=== PATIENT | male | born 1970 | race African-American/Black ===

== ENCOUNTER 2016-05-17 19:11 | Emergency (ER) | payer OTHER ==
--- NOTE | 2016-05-17 20:06 | ED NURSING NOTES ---
Clinical Report - Nurses [address] [place] [address] 05/17/2016 19:12 Patient: GABINO BRIDGES TRIAGE Triage time 19:25 May 17 2016. Acuity: LEVEL 4. Chief Complaint: COUGH (cough and burning in chest with cough). SEPSIS SCREEN: Sepsis Screen. Negative (no infection suspected/documented). FRIEDA COMA SCORE: [place] Coma Scale: 15- eyes open spontaneously (4); best verbal response- oriented x 4 (5); best motor response- obeys commands (6). --19:31 Katya Anderson R.N. 19:28 05/17/16. BP: 127/87. HR: 71. RR: 18. O2 saturation: 98%. Temp: 98.5 F. Pain level now: 05/12. --19:31 Katya Anderson R.N. Weight: 70.3 kg stated. Height/Length: 71 inches Per Patient. BMI: 21.6. --19:25 Katya Anderson R.N. Medications Dilantin. --19:29 Katya Anderson R.N. Medication/allergy information source: the patient. --19:31 Katya Anderson R.N. Allergies No Known Drug Allergy. --19:29 Katya Anderson R.N. History Arrived by private vehicle. Historian: patient. Onset. (2 days). He has had a cough. No fever, weakness, difficulty breathing or skin rash. Denies muscle aches. 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 PAST MEDICAL HX: Has not received seasonal influenza immunization. SOCIAL HX: Heavy tobacco smoker (cigarette)- 1 pack per day. Occasional alcohol use; consumes beer occasionally. History of drug use: marijuana. No infectious disease exposure. ABUSE ASSESSMENT: No report of abuse. SELF HARM ASSESSMENT: A self harm assessment was performed. The patient answered "no" to the question "Have you recently felt down, depressed, or hopeless?", "Have you noticed less interest or pleasure in doing things?", "Do you have thoughts of harming or killing yourself?", "Are you here because you tried to hurt yourself?", "Have you ever tried to hurt yourself before today?", "Have you recently had thoughts about harming or killing others?" and "Do you have any dangerous items in your possession?". NUTRITIONAL RISK ASSESSMENT: The nutritional risk assessment revealed no deficiencies. FUNCTIONAL ASSESSMENT: Functional assessment: no impairments noted. LEARNING NEEDS ASSESSMENT: The learning needs assessment revealed no barriers. SKIN INTEGRITY ASSESSMENT: Skin integrity risk assessment completed. No skin integrity risk identified. --19:31 Katya Anderson R.N. PROBLEMS: Arthritis. Sprain. Crush Injury. Exposure To STD. Headache. Substance Abuse. Seizure. Abscess. Knee Injury. --19:29 Katya Anderson R.N. ADDITIONAL SURGERIES: R Wrist Repair. Skin grafting. --19:29 Katya Anderson R.N. Interventions ID band on patient. --19:31 Katya Anderson R.N. NURSING PROGRESS NOTES 19:30 05/17/16. The initial plan of care for this patient includes an assessment with efforts to address impairment of the respiratory system. This plan of care was discussed with the patient. Patient gowned. Patient identifiers checked. Call light placed in reach. Side rails up x 1. Bed placed in lowest position. Brakes of bed on. Patient ready for evaluation. --19:31 Katya Anderson R.N. DISPOSITION / DISCHARGE 20:10 05/17/16. Condition at departure: improved and stable. The goals identified in the patient's plan of care were met. No learning barriers present. Patient verbalized understanding. Written instructions provided in [place] Citizen. The patient was discharged home and accompanied by family. He left the Emergency Department ambulatory and via private vehicle. Patient driving. --20:10 Katya Anderson R.N. 19:28 05/17/16. BP: 127/87. HR: 71. RR: 18. O2 saturation: 98%. Temp: 98.5 F. Pain level now: 2/10. --20:10 Katya Anderson R.N. Departure time: 20:10 May 17 2016. --20:11 Katya Anderson R.N. Locked/Released at 05/17/2016 20:11 by Katya Anderson R.N.
--- NOTE | 2016-05-17 20:06 | ED CLINICAL REPORT ---
Clinical Report - Physicians/Mid Levels [facility] [address] [place] [address] 05/17/2016 19:12 Patient: GABINO BRIDGES Time Seen: 19:27. Arrived- By private vehicle. Historian- patient. CPT: ER phys charges level 3 (#[id number]). 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 The illness is described as moderate. The patient has had a cough. No sputum production, difficulty breathing, chest pain, fever or muscle aches. No chills. He has had chest discomfort (burning). Additional history - No known contact with a sick individual. Similar symptoms previously: None. Recent medical care: Not recently seen/assessed. REVIEW OF SYSTEMS No headache, nausea, vomiting, diarrhea or abdominal pain. No pedal edema, calf pain, difficulty with urination, skin rash or enlarged lymph nodes. No joint pain. All systems otherwise negative, except as recorded above. PAST HISTORY Arthritis. Sprain. Crush Injury. Exposure To STD. Headache. Substance Abuse. Seizure. Abscess. Knee Injury. --19:29 Katya Anderson R.N. ADDITIONAL SURGERIES: R Wrist Repair. Skin grafting. Medications: Dilantin. Allergies: No Known Drug Allergy. SOCIAL HISTORY Heavy tobacco smoker (cigarette)- less than 1 pack per day. Alcohol use. History of occasional drug use: marijuana. ADDITIONAL NOTES The nursing notes have been reviewed. PHYSICAL EXAM Vital Signs: 05/17/2016 19:28 BP: 127/87. HR: 71. RR: 18. O2 saturation: 98%. Temp: 98.5 F. Pain level now: 2/10. Appearance: Alert. No acute distress. Eyes: Pupils equal, round and reactive to light. Eyes normal inspection. ENT: Ears normal. Nose normal. Pharynx normal. Uvula midline. Neck: Normal inspection. Neck supple. CVS: Normal heart rate and rhythm. Heart sounds normal. Pulses normal. Respiratory: No respiratory distress. Breath sounds normal. Abdomen: Soft and nontender. Back: Normal inspection. Skin: Skin warm. Normal skin color. No rash. Extremities: Extremities exhibit normal ROM. No lower extremity edema. Neuro: Oriented X 3. No motor deficit. No sensory deficit. PROGRESS AND PROCEDURES Patient/family counseled. Disposition: Discharged. Condition: stable. CLINICAL IMPRESSION Acute viral bronchitis. Acute viral rhinitis. No sinusitis. No airway obstruction. INSTRUCTIONS Drink plenty of fluids. Warnings: Further evaluation is necessary. GENERAL WARNINGS: Return or contact your physician immediately if your condition worsens or changes unexpectedly, if not improving as expected, or if other problems arise. Prescription Medications: Albuterol HFA oral inhaler: inhale 2 puffs via spacer every 4 hours as needed for wheezing or shortness of breath. Dispense one (1) unit. No refill. (cough) Pulmicort Flexhaler 180 mcg: inhale 2 puffs every 12 hours. Rinse mouth after inhalation. Dispense one (1) unit. No refills. Substitution is permissible. OTC Medications: Acetaminophen (available over the counter): take according to label instructions. Motrin (available over the counter): take according to label instructions. Follow-up: Follow up with your doctor in one week if not better. Understanding of the discharge instructions verbalized by patient. (Electronically signed by Tr Hendrix MD 05/19/2016 22:36)
--- NOTE | 2016-05-17 20:06 | ED CLINICAL REPORT ---
Clinical Report - Physicians/Mid Levels [facility] [address] [place] [address] 05/17/2016 19:12 Patient: GABINO BRIDGES Time Seen: 19:27. Arrived- By private vehicle. Historian- patient. CPT: ER phys charges level 3 (#[id number]). 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 The illness is described as moderate. The patient has had a cough. No sputum production, difficulty breathing, chest pain, fever or muscle aches. No chills. He has had chest discomfort (burning). Additional history - No known contact with a sick individual. Similar symptoms previously: None. Recent medical care: Not recently seen/assessed. REVIEW OF SYSTEMS No headache, nausea, vomiting, diarrhea or abdominal pain. No pedal edema, calf pain, difficulty with urination, skin rash or enlarged lymph nodes. No joint pain. All systems otherwise negative, except as recorded above. PAST HISTORY Arthritis. Sprain. Crush Injury. Exposure To STD. Headache. Substance Abuse. Seizure. Abscess. Knee Injury. --19:29 Katya Anderson R.N. ADDITIONAL SURGERIES: R Wrist Repair. Skin grafting. Medications: Dilantin. Allergies: No Known Drug Allergy. SOCIAL HISTORY Heavy tobacco smoker (cigarette)- less than 1 pack per day. Alcohol use. History of occasional drug use: marijuana. ADDITIONAL NOTES The nursing notes have been reviewed. PHYSICAL EXAM Vital Signs: 05/17/2016 19:28 BP: 127/87. HR: 71. RR: 18. O2 saturation: 98%. Temp: 98.5 F. Pain level now: 2/10. Appearance: Alert. No acute distress. Eyes: Pupils equal, round and reactive to light. Eyes normal inspection. ENT: Ears normal. Nose normal. Pharynx normal. Uvula midline. Neck: Normal inspection. Neck supple. CVS: Normal heart rate and rhythm. Heart sounds normal. Pulses normal. Respiratory: No respiratory distress. Breath sounds normal. Abdomen: Soft and nontender. Back: Normal inspection. Skin: Skin warm. Normal skin color. No rash. Extremities: Extremities exhibit normal ROM. No lower extremity edema. Neuro: Oriented X 3. No motor deficit. No sensory deficit. PROGRESS AND PROCEDURES Patient/family counseled. Disposition: Discharged. Condition: stable. CLINICAL IMPRESSION Acute viral bronchitis. Acute viral rhinitis. No sinusitis. No airway obstruction. INSTRUCTIONS Drink plenty of fluids. Warnings: Further evaluation is necessary. GENERAL WARNINGS: Return or contact your physician immediately if your condition worsens or changes unexpectedly, if not improving as expected, or if other problems arise. Prescription Medications: Albuterol HFA oral inhaler: inhale 2 puffs via spacer every 4 hours as needed for wheezing or shortness of breath. Dispense one (1) unit. No refill. (cough) Pulmicort Flexhaler 180 mcg: inhale 2 puffs every 12 hours. Rinse mouth after inhalation. Dispense one (1) unit. No refills. Substitution is permissible. OTC Medications: Acetaminophen (available over the counter): take according to label instructions. Motrin (available over the counter): take according to label instructions. Follow-up: Follow up with your doctor in one week if not better. Understanding of the discharge instructions verbalized by patient. (Electronically signed by Tr Hendrix MD 05/19/2016 22:36)
--- NOTE | 2016-05-17 20:06 | ED NURSING NOTES ---
Clinical Report - Nurses [address] [place] [address] 05/17/2016 19:12 Patient: GABINO BRIDGES TRIAGE Triage time 19:25 May 17 2016. Acuity: LEVEL 4. Chief Complaint: COUGH (cough and burning in chest with cough). SEPSIS SCREEN: Sepsis Screen. Negative (no infection suspected/documented). FRIEDA COMA SCORE: [place] Coma Scale: 15- eyes open spontaneously (4); best verbal response- oriented x 4 (5); best motor response- obeys commands (6). --19:31 Katya Anderson R.N. 19:28 05/17/16. BP: 127/87. HR: 71. RR: 18. O2 saturation: 98%. Temp: 98.5 F. Pain level now: 05/12. --19:31 Katya Anderson R.N. Weight: 70.3 kg stated. Height/Length: 71 inches Per Patient. BMI: 21.6. --19:25 Katya Anderson R.N. Medications Dilantin. --19:29 Katya Anderson R.N. Medication/allergy information source: the patient. --19:31 Katya Anderson R.N. Allergies No Known Drug Allergy. --19:29 Katya Anderson R.N. History Arrived by private vehicle. Historian: patient. Onset. (2 days). He has had a cough. No fever, weakness, difficulty breathing or skin rash. Denies muscle aches. 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 PAST MEDICAL HX: Has not received seasonal influenza immunization. SOCIAL HX: Heavy tobacco smoker (cigarette)- 1 pack per day. Occasional alcohol use; consumes beer occasionally. History of drug use: marijuana. No infectious disease exposure. ABUSE ASSESSMENT: No report of abuse. SELF HARM ASSESSMENT: A self harm assessment was performed. The patient answered "no" to the question "Have you recently felt down, depressed, or hopeless?", "Have you noticed less interest or pleasure in doing things?", "Do you have thoughts of harming or killing yourself?", "Are you here because you tried to hurt yourself?", "Have you ever tried to hurt yourself before today?", "Have you recently had thoughts about harming or killing others?" and "Do you have any dangerous items in your possession?". NUTRITIONAL RISK ASSESSMENT: The nutritional risk assessment revealed no deficiencies. FUNCTIONAL ASSESSMENT: Functional assessment: no impairments noted. LEARNING NEEDS ASSESSMENT: The learning needs assessment revealed no barriers. SKIN INTEGRITY ASSESSMENT: Skin integrity risk assessment completed. No skin integrity risk identified. --19:31 Katya Anderson R.N. PROBLEMS: Arthritis. Sprain. Crush Injury. Exposure To STD. Headache. Substance Abuse. Seizure. Abscess. Knee Injury. --19:29 Katya Anderson R.N. ADDITIONAL SURGERIES: R Wrist Repair. Skin grafting. --19:29 Katya Anderson R.N. Interventions ID band on patient. --19:31 Katya Anderson R.N. NURSING PROGRESS NOTES 19:30 05/17/16. The initial plan of care for this patient includes an assessment with efforts to address impairment of the respiratory system. This plan of care was discussed with the patient. Patient gowned. Patient identifiers checked. Call light placed in reach. Side rails up x 1. Bed placed in lowest position. Brakes of bed on. Patient ready for evaluation. --19:31 Katya Anderson R.N. DISPOSITION / DISCHARGE 20:10 05/17/16. Condition at departure: improved and stable. The goals identified in the patient's plan of care were met. No learning barriers present. Patient verbalized understanding. Written instructions provided in [place]. The patient was discharged home and accompanied by family. He left the Emergency Department ambulatory and via private vehicle. Patient driving. --20:10 Katya Anderson R.N. 19:28 05/17/16. BP: 127/87. HR: 71. RR: 18. O2 saturation: 98%. Temp: 98.5 F. Pain level now: 2/10. --20:10 Katya Anderson R.N. Departure time: 20:10 May 17 2016. --20:11 Katya Anderson R.N. Locked/Released at 05/17/2016 20:11 by Katya Anderson R.N.
--- NOTE | 2016-05-19 22:36 | ED MED RECONCILIATION SUMMARY ---
Patient: GABINO BRIDGES Medication Reconciliation Report [facility] VisitID: [id number] [address] [place] [address] 45y, M Registration Date/Time: 05/17/2016 Weight: 70.3 kg Height/Length: 71 in. BMI: 21.6 ALLERGIES: No Known Drug Allergy The patient's Home Medications are listed below: THE FOLLOWING MEDICATIONS NEED TO BE RECONCILED: Dilantin The source(s) of the original Home Medication information: patient The following Medications were given to the patient in the Emergency Department: None. The following Medications were prescribed to the patient: Acetaminophen (available over the counter): take according to label instructions. -- Tr Hendrix MD Motrin (available over the counter): take according to label instructions. -- Tr Hendrix MD Albuterol HFA oral inhaler: inhale 2 puffs via spacer every 4 hours as needed for wheezing or shortness of breath. Dispense one (1) unit. No refill.(cough) -- Tr Hendrix MD Pulmicort Flexhaler 180 mcg: inhale 2 puffs every 12 hours. Rinse mouth after inhalation. Dispense one (1) unit. No refills. Substitution is permissible. -- Tr Hendrix MD
--- NOTE | 2016-05-19 22:36 | ED DISCHARGE INSTRUCTIONS ---
Patient: GABINO BRIDGES General Instructions [facility] VisitID: [id number] [place] [address] 45y, M Registration Date/Time: 05/17/2016 Acute viral bronchitis. Acute viral rhinitis. No sinusitis. No airway obstruction. INSTRUCTIONS Drink plenty of fluids. Warnings: Further evaluation is necessary. GENERAL WARNINGS: Return or contact your physician immediately if your condition worsens or changes unexpectedly, if not improving as expected, or if other problems arise. Prescription Medications: Albuterol HFA oral inhaler: inhale 2 puffs via spacer every 4 hours as needed for wheezing or shortness of breath. Dispense one (1) unit. No refill. (cough) Pulmicort Flexhaler 180 mcg: inhale 2 puffs every 12 hours. Rinse mouth after inhalation. Dispense one (1) unit. No refills. Substitution is permissible. OTC Medications: Acetaminophen (available over the counter): take according to label instructions. Motrin (available over the counter): take according to label instructions. Follow-up: Follow up with your doctor in one week if not better. Understanding of the discharge instructions verbalized by patient. ADDITIONAL INFORMATION Viral Respiratory Illness [Adult] You have an Upper Respiratory Illness (URI) caused by a virus. This illness is contagious during the first few days. It is spread through the air by coughing and sneezing or by direct contact (touching the sick person and then touching your own eyes, nose or mouth). Most viral illnesses go away within 7-10 days with rest and simple home remedies. Sometimes, the illness may last for several weeks. Antibiotics will not kill a virus and are generally not prescribed for this condition. Home Care: 1) If symptoms are severe, rest at home for the first 2-3 days. When you resume activity, don't let yourself get too tired. 2) Avoid being exposed to cigarette smoke (yours or others). 3) Tylenol (acetaminophen) or ibuprofen (Advil, Motrin) will help fever, muscle aching and headache. (Persons under 18 with fever should not take aspirin since this may cause liver damage.) 4) Your appetite may be poor, so a light diet is fine. Avoid dehydration by drinking 6-8 glasses of fluids per day (water, soft drinks, juices, tea, soup). Extra fluids will help loosen secretions in the nose and lungs. 5) Upxi-ifa-qtpnhcb cold medicines will not shorten the length of time youre sick, but they may be helpful for the following symptoms: cough (Robitussin DM); sore throat (Chloraseptic lozenges or spray); nasal and sinus congestion (Actifed, Sudafed, Chlortrimeton). Follow Up with your doctor or as advised if you dont improve over the next week. Get Prompt Medical Attention if any of the following occur: -- Cough with lots of colored sputum (mucus) or blood in your sputum -- Chest pain, shortness of breath, wheezing or have trouble breathing -- Severe headache; face, neck or ear pain -- Fever over 100.4 F (38.0 C) for more than three days -- You cant swallow due to throat pain Albuterol Sulfate Pressurized inhalation, suspension What is this medicine? ALBUTEROL (al BYOO ter ole) is a bronchodilator. It helps open up the airways in your lungs to make it easier to breathe. This medicine is used to treat and to prevent bronchospasm. How should I use this medicine? This medicine is for inhalation through the mouth. Follow the directions on your prescription label. Take your medicine at regular intervals. Do not use more often than directed. Make sure that you are using your inhaler correctly. Ask you doctor or health care provider if you have any questions. Talk to your residential glazier regarding the use of this medicine in children. Special care may be needed. What side effects may I notice from receiving this medicine? Side effects that you should report to your doctor or health medicare sales executive as soon as possible: allergic reactions like skin rash, itching or hives, swelling of the face, lips, or tongue breathing problems chest pain feeling faint or lightheaded, falls high blood pressure irregular heartbeat fever muscle cramps or weakness pain, tingling, numbness in the hands or feet vomiting Side effects that usually do not require medical attention (report to your doctor or health medicare sales executive if they continue or are bothersome): cough difficulty sleeping headache nervousness or trembling stomach upset stuffy or runny nose throat irritation unusual taste What may interact with this medicine? anti-infectives like chloroquine and pentamidine caffeine cisapride diuretics medicines for colds medicines for depression or for emotional or psychotic conditions medicines for weight loss including some herbal products methadone some antibiotics like clarithromycin, erythromycin, levofloxacin, and linezolid some heart medicines steroid hormones like dexamethasone, cortisone, hydrocortisone theophylline thyroid hormones What if I miss a dose? If you miss a dose, use it as soon as you can. If it is almost time for your next dose, use only that dose. Do not use double or extra doses. Where should I keep my medicine? Keep out of the reach of children. Store at room temperature between 15 and 30 degrees C (59 and 86 degrees F). The contents are under pressure and may burst when exposed to heat or flame. Do not freeze. This medicine does not work as well if it is too cold. Throw away any unused medicine after the expiration date. Inhalers need to be thrown away after the labeled number of puffs have been used or by the expiration date; whichever comes first. Ventolin HFA should be thrown away 12 months after removing from foil pouch. Check the instructions that come with your medicine. What should I tell my health care provider before I take this medicine? They need to know if you have any of the following conditions: diabetes heart disease or irregular heartbeat high blood pressure pheochromocytoma seizures thyroid disease an unusual or allergic reaction to albuterol, levalbuterol, sulfites, other medicines, foods, dyes, or preservatives or trying to get breast-feeding What should I watch for while using this medicine? Tell your doctor or health medicare sales executive if your symptoms do not improve. Do not use extra albuterol. If your asthma or bronchitis gets worse while you are using this medicine, call your doctor right away. If your mouth gets dry try chewing sugarless gum or sucking hard candy. Drink water as directed. You have been given the following additional information: Uri, Viral, No Abx (Adult) Albuterol Sulfate Pressurized inhalation, suspension (Electronically signed by Tr Hendrix MD 05/19/2016 22:36)
--- NOTE | 2016-05-19 22:36 | ED MED RECONCILIATION SUMMARY ---
Patient: GABINO BRIDGES Medication Reconciliation Report [facility] VisitID: [id number] [address] [place] [address] 45y, M Registration Date/Time: 05/17/2016 Weight: 70.3 kg Height/Length: 71 in. BMI: 21.6 ALLERGIES: No Known Drug Allergy The patient's Home Medications are listed below: THE FOLLOWING MEDICATIONS NEED TO BE RECONCILED: Dilantin The source(s) of the original Home Medication information: patient The following Medications were given to the patient in the Emergency Department: None. The following Medications were prescribed to the patient: Acetaminophen (available over the counter): take according to label instructions. -- Tr Hendrix MD Motrin (available over the counter): take according to label instructions. -- Tr Hendrix MD Albuterol HFA oral inhaler: inhale 2 puffs via spacer every 4 hours as needed for wheezing or shortness of breath. Dispense one (1) unit. No refill.(cough) -- Tr Hendrix MD Pulmicort Flexhaler 180 mcg: inhale 2 puffs every 12 hours. Rinse mouth after inhalation. Dispense one (1) unit. No refills. Substitution is permissible. -- Tr Hendrix MD
--- NOTE | 2016-05-19 22:36 | ED MAR SUMMARY ---
..... Medication Administration Record [facility] [address] [place] [address] Patient: GABINO BRIDGES Visit ID: [id number] 45y, M Weight: 70.3 kg Height/Length: 71 in BMI: 21.6 ALLERGIES: No Known Drug Allergy
--- NOTE | 2016-05-19 22:36 | ED DISCHARGE INSTRUCTIONS ---
Patient: GABINO BRIDGES General Instructions [facility] VisitID: [id number] [place] [address] 45y, M Registration Date/Time: 05/17/2016 Acute viral bronchitis. Acute viral rhinitis. No sinusitis. No airway obstruction. INSTRUCTIONS Drink plenty of fluids. Warnings: Further evaluation is necessary. GENERAL WARNINGS: Return or contact your physician immediately if your condition worsens or changes unexpectedly, if not improving as expected, or if other problems arise. Prescription Medications: Albuterol HFA oral inhaler: inhale 2 puffs via spacer every 4 hours as needed for wheezing or shortness of breath. Dispense one (1) unit. No refill. (cough) Pulmicort Flexhaler 180 mcg: inhale 2 puffs every 12 hours. Rinse mouth after inhalation. Dispense one (1) unit. No refills. Substitution is permissible. OTC Medications: Acetaminophen (available over the counter): take according to label instructions. Motrin (available over the counter): take according to label instructions. Follow-up: Follow up with your doctor in one week if not better. Understanding of the discharge instructions verbalized by patient. ADDITIONAL INFORMATION Viral Respiratory Illness [Adult] You have an Upper Respiratory Illness (URI) caused by a virus. This illness is contagious during the first few days. It is spread through the air by coughing and sneezing or by direct contact (touching the sick person and then touching your own eyes, nose or mouth). Most viral illnesses go away within 7-10 days with rest and simple home remedies. Sometimes, the illness may last for several weeks. Antibiotics will not kill a virus and are generally not prescribed for this condition. Home Care: 1) If symptoms are severe, rest at home for the first 2-3 days. When you resume activity, don't let yourself get too tired. 2) Avoid being exposed to cigarette smoke (yours or others). 3) Tylenol (acetaminophen) or ibuprofen (Advil, Motrin) will help fever, muscle aching and headache. (Persons under 18 with fever should not take aspirin since this may cause liver damage.) 4) Your appetite may be poor, so a light diet is fine. Avoid dehydration by drinking 6-8 glasses of fluids per day (water, soft drinks, juices, tea, soup). Extra fluids will help loosen secretions in the nose and lungs. 5) Ttqu-[id number] cold medicines will not shorten the length of time youre sick, but they may be helpful for the following symptoms: cough (Robitussin DM); sore throat (Chloraseptic lozenges or spray); nasal and sinus congestion (Actifed, Sudafed, Chlortrimeton). Follow Up with your doctor or as advised if you dont improve over the next week. Get Prompt Medical Attention if any of the following occur: -- Cough with lots of colored sputum (mucus) or blood in your sputum -- Chest pain, shortness of breath, wheezing or have trouble breathing -- Severe headache; face, neck or ear pain -- Fever over 100.4 F (38.0 C) for more than three days -- You cant swallow due to throat pain Albuterol Sulfate Pressurized inhalation, suspension What is this medicine? ALBUTEROL (al BYOO ter ole) is a bronchodilator. It helps open up the airways in your lungs to make it easier to breathe. This medicine is used to treat and to prevent bronchospasm. How should I use this medicine? This medicine is for inhalation through the mouth. Follow the directions on your prescription label. Take your medicine at regular intervals. Do not use more often than directed. Make sure that you are using your inhaler correctly. Ask you doctor or health care provider if you have any questions. Talk to your guest request runner regarding the use of this medicine in children. Special care may be needed. What side effects may I notice from receiving this medicine? Side effects that you should report to your doctor or health career services coordinator as soon as possible: allergic reactions like skin rash, itching or hives, swelling of the face, lips, or tongue breathing problems chest pain feeling faint or lightheaded, falls high blood pressure irregular heartbeat fever muscle cramps or weakness pain, tingling, numbness in the hands or feet vomiting Side effects that usually do not require medical attention (report to your doctor or health career services coordinator if they continue or are bothersome): cough difficulty sleeping headache nervousness or trembling stomach upset stuffy or runny nose throat irritation unusual taste What may interact with this medicine? anti-infectives like chloroquine and pentamidine caffeine cisapride diuretics medicines for colds medicines for depression or for emotional or psychotic conditions medicines for weight loss including some herbal products methadone some antibiotics like clarithromycin, erythromycin, levofloxacin, and linezolid some heart medicines steroid hormones like dexamethasone, cortisone, hydrocortisone theophylline thyroid hormones What if I miss a dose? If you miss a dose, use it as soon as you can. If it is almost time for your next dose, use only that dose. Do not use double or extra doses. Where should I keep my medicine? Keep out of the reach of children. Store at room temperature between 15 and 30 degrees C (59 and 86 degrees F). The contents are under pressure and may burst when exposed to heat or flame. Do not freeze. This medicine does not work as well if it is too cold. Throw away any unused medicine after the expiration date. Inhalers need to be thrown away after the labeled number of puffs have been used or by the expiration date; whichever comes first. Ventolin HFA should be thrown away 12 months after removing from foil pouch. Check the instructions that come with your medicine. What should I tell my health care provider before I take this medicine? They need to know if you have any of the following conditions: diabetes heart disease or irregular heartbeat high blood pressure pheochromocytoma seizures thyroid disease an unusual or allergic reaction to albuterol, levalbuterol, sulfites, other medicines, foods, dyes, or preservatives or trying to get breast-feeding What should I watch for while using this medicine? Tell your doctor or health career services coordinator if your symptoms do not improve. Do not use extra albuterol. If your asthma or bronchitis gets worse while you are using this medicine, call your doctor right away. If your mouth gets dry try chewing sugarless gum or sucking hard candy. Drink water as directed. You have been given the following additional information: Uri, Viral, No Abx (Adult) Albuterol Sulfate Pressurized inhalation, suspension (Electronically signed by Tr Hendrix MD 05/19/2016 22:36)
--- NOTE | 2016-05-19 22:36 | ED MAR SUMMARY ---
..... Medication Administration Record [facility] [address] [place] [address] Patient: GABINO BRIDGES Visit ID: [id number] 45y, M Weight: 70.3 kg Height/Length: 71 in BMI: 21.6 ALLERGIES: No Known Drug Allergy
== END 2016-05-17 20:11 | disposition home or self-care (01) ==
LOC: ED SRH 19:11
DX: J20.8 Acute bronchitis due to other specified organisms (principal); J00 Acute nasopharyngitis [common cold]

== ENCOUNTER 2016-10-18 11:37 | Emergency (ER) | payer OTHER ==
--- NOTE | 2016-10-18 12:20 | ED NURSING NOTES ---
Clinical Report - Nurses [facility] [address] [place] [address] 10/18/2016 11:37 Patient: GABINO BRIDGES TRIAGE Triage time 11:43. Acuity: LEVEL 4. Chief Complaint: (Localized rash in pubic area, between hip and penis. Pt says it started as a little bump two days ago (10/15). Thought it was an ingrown hair. He used clippers to remove the hair to get a better look, and the next day (yesterday, 10/17) it had gotten worse.). Alert. No acute distress. KATJA COMA SCORE: Katja Coma Scale: 15- eyes open spontaneously (4); best verbal response- oriented x 4 (5); best motor response- obeys commands (6). --11:53 Francisco J Johnson R.N. 11:43 10/18/16. BP: 134/80. HR: 90. RR: 15. O2 saturation: 100% on room air. Temp: 97.7 F (oral). Pain level now: 0/10. --11:53 Francisco J Johnson R.N. Weight: 70.3 kg stated. Height/Length: 70 inches Per Patient. BMI: 22.2. --11:42 Francisco J Johnson R.N. Medications None. --11:50 Francisco J Johnson R.N. Allergies None. --11:50 Francisco J Johnson R.N. History Arrived by private vehicle. Historian: patient. No primary care physician. Onset. (2 days ago). 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 made it burn, didn't seem to help.). PAST MEDICAL HX: UTI. Immunizations: up-to-date. SOCIAL HX: Light tobacco smoker. Occasional alcohol use. History of heavy drug use: marijuana. No infectious disease exposure. SELF HARM ASSESSMENT: A self harm assessment was performed. The patient answered "no" to the question "Do you have thoughts of harming or killing yourself?" and "Have you recently had thoughts about harming or killing others?". FALL RISK ASSESSMENT: Fall risk assessment completed. No fall risk identified. NUTRITIONAL RISK ASSESSMENT: The nutritional risk assessment revealed no deficiencies. FUNCTIONAL ASSESSMENT: Functional assessment: no impairments noted. LEARNING NEEDS ASSESSMENT: The learning needs assessment revealed no barriers. ABUSE ASSESSMENT: Abuse assessment: The patient was asked "Do you feel safe in your home?". SKIN INTEGRITY ASSESSMENT: Skin integrity risk assessment completed. No skin integrity risk identified. --11:53 Francisco J Johnson R.N. PROBLEMS: Bronchitis. URI. Arthritis. Crush Injury. Exposure To STD. Substance Abuse. Seizure. Abscess. --11:51 Francisco J Johnson R.N. ADDITIONAL SURGERIES: R Wrist Repair. Skin grafting. --11:51 Francisco J Johnson R.N. Interventions ID band on patient. To treatment room. --11:53 Francisco J Johnson R.N. PHYSICAL ASSESSMENT Ambulatory to room. GENERAL / NEURO / PSYCH: Alert. Oriented X 4. Appears in no acute distress. HEENT: Mucous membranes are pink. RESPIRATORY: Respirations not labored. CVS: Capillary refill less than 2 seconds. GI / : Abdomen soft and nontender. Normal genitalia. ( Round, well-approximated lesions noted on right side of pubic region, between hip and penis. Roughly six-seven in number, pink, flat, smooth, and about the size of an eraser on the back of a pencil.). SKIN: Skin is warm and dry. --11:59 Francisco J Johnson R.N. NURSING PROGRESS NOTES The plan of care for this patient has been created. Head of bed elevated. Reassurance given. Two patient identifiers checked. Call light placed in reach. Side rails up x 1. Bed placed in lowest position. Brakes of bed on. Patient ready for evaluation- chart flagged and ED physician notified. --11:59 Francisco J Johnson R.N. DISPOSITION / DISCHARGE 12:29 10/18/16. The goals identified in the patient's plan of care were met. No learning barriers present. Discharge instructions provided and reviewed with the patient. Reviewed warnings. Reviewed medication(s). Treatments reviewed. Patient verbalized understanding. Written instructions provided in Bahraini. The patient was discharged by the physician. He was discharged home and accompanied by family. He left the Emergency Department ambulatory and via private vehicle. Family member driving. FALL RISK ASSESSMENT: Fall risk assessment completed. No fall risk identified. --12:29 James Ferguson R.N. 12:28 10/18/16. BP: 123/72. HR: 80. RR: 15. O2 saturation: 99% on room air. Temp: 98.2 F (oral). Pain level now: 04/11. --12:29 James Ferguson R.N. 12:29 10/18/16. Departure time: 12:Oct 18 2016. --12:29 James Ferguson R.N. Locked/Released at 10/18/2016 12:34 by James Ferguson R.N.
--- NOTE | 2016-10-18 12:20 | ED CLINICAL REPORT ---
Clinical Report - Physicians/Mid Levels [facility] [address] [place] [address] 10/18/2016 11:37 Patient: GABINO BRIDGES Time Seen: 11:41; initial patient contact. Arrived- By private vehicle. Historian- patient. HISTORY OF PRESENT ILLNESS Chief Complaint: SKIN RASH. This started about 2 days ago and is still present (persistent). It was gradual in onset. It is described as itchy. It has been located on the perineum (R inguinal area). No cause has been identified. No recent medication or insect bite. Similar symptoms previously: None. Recent medical care: Not recently seen/assessed. REVIEW OF SYSTEMS No fever, chills, enlarged lymph nodes, difficulty with urination or genital lesions. All systems otherwise negative, except as recorded above. PAST HISTORY Bronchitis. URI. Arthritis. Crush Injury. Exposure To STD. Substance Abuse. Seizure. Abscess. SURGERIES: R Wrist Repair. Skin grafting. SOCIAL HISTORY Current every day smoker. Occasional alcohol use. History of occasional drug use. ADDITIONAL NOTES The nursing notes have been reviewed. PHYSICAL EXAM Vital Signs: 10/18/2016 11:43 BP: 134/80. HR: 90. RR: 15. O2 saturation: 100%. Temp: 97.7 F. Pain level now: 0/10. Have been reviewed as normal. Appearance: Alert. Oriented X3. No acute distress. Skin: Rash present on the perineum (R inguinal area). The rash is erythematous. No warmth, lymphangitis, induration, tenderness or swelling. Neuro: Oriented X 3. PROGRESS AND PROCEDURES Disposition: Discharged home in good and improved condition. Condition: good. CLINICAL IMPRESSION Tinea cruris INSTRUCTIONS Your Current Medications: CONTINUE TAKING THE FOLLOWING MEDICATIONS: None*. Prescription Medications: Nystatin Topical Cream: apply to affected areas three times daily as needed for rash until symptoms resolve. Dispense thirty (30) grams. No refills. Follow-up: Follow up with your doctor in about one week. Call for an appointment. Screening today revealed the patient's blood pressure to be in the pre-hypertensive range. The patient should follow up with a primary care provider for blood pressure management. (Electronically signed by Chano Mark Dr. 10/18/2016 13:38)
--- NOTE | 2016-10-18 12:20 | ED CLINICAL REPORT ---
Clinical Report - Physicians/Mid Levels [facility] [address] [place] [address] 10/18/2016 11:37 Patient: GABINO BRIDGES Time Seen: 11:41; initial patient contact. Arrived- By private vehicle. Historian- patient. HISTORY OF PRESENT ILLNESS Chief Complaint: SKIN RASH. This started about 2 days ago and is still present (persistent). It was gradual in onset. It is described as itchy. It has been located on the perineum (R inguinal area). No cause has been identified. No recent medication or insect bite. Similar symptoms previously: None. Recent medical care: Not recently seen/assessed. REVIEW OF SYSTEMS No fever, chills, enlarged lymph nodes, difficulty with urination or genital lesions. All systems otherwise negative, except as recorded above. PAST HISTORY Bronchitis. URI. Arthritis. Crush Injury. Exposure To STD. Substance Abuse. Seizure. Abscess. SURGERIES: R Wrist Repair. Skin grafting. SOCIAL HISTORY Current every day smoker. Occasional alcohol use. History of occasional drug use. ADDITIONAL NOTES The nursing notes have been reviewed. PHYSICAL EXAM Vital Signs: 10/18/2016 11:43 BP: 134/80. HR: 90. RR: 15. O2 saturation: 100%. Temp: 97.7 F. Pain level now: 0/10. Have been reviewed as normal. Appearance: Alert. Oriented X3. No acute distress. Skin: Rash present on the perineum (R inguinal area). The rash is erythematous. No warmth, lymphangitis, induration, tenderness or swelling. Neuro: Oriented X 3. PROGRESS AND PROCEDURES Disposition: Discharged home in good and improved condition. Condition: good. CLINICAL IMPRESSION Tinea cruris INSTRUCTIONS Your Current Medications: CONTINUE TAKING THE FOLLOWING MEDICATIONS: None*. Prescription Medications: Nystatin Topical Cream: apply to affected areas three times daily as needed for rash until symptoms resolve. Dispense thirty (30) grams. No refills. Follow-up: Follow up with your doctor in about one week. Call for an appointment. Screening today revealed the patient's blood pressure to be in the pre-hypertensive range. The patient should follow up with a primary care provider for blood pressure management. (Electronically signed by Chano Mark Dr. 10/18/2016 13:38)
--- NOTE | 2016-10-18 12:20 | ED NURSING NOTES ---
Clinical Report - Nurses [facility] [address] [place] [address] 10/18/2016 11:37 Patient: GABINO BRIDGES TRIAGE Triage time 11:43. Acuity: LEVEL 4. Chief Complaint: (Localized rash in pubic area, between hip and penis. Pt says it started as a little bump two days ago (10/15). Thought it was an ingrown hair. He used clippers to remove the hair to get a better look, and the next day (yesterday, 10/17) it had gotten worse.). Alert. No acute distress. KATJA COMA SCORE: Katja Coma Scale: 15- eyes open spontaneously (4); best verbal response- oriented x 4 (5); best motor response- obeys commands (6). --11:53 Francisco J Johnson R.N. 11:43 10/18/16. BP: 134/80. HR: 90. RR: 15. O2 saturation: 100% on room air. Temp: 97.7 F (oral). Pain level now: 0/10. --11:53 Francisco J Johnson R.N. Weight: 70.3 kg stated. Height/Length: 70 inches Per Patient. BMI: 22.2. --11:42 Francisco J Johnson R.N. Medications None. --11:50 Francisco J Johnson R.N. Allergies None. --11:50 Francisco J Johnson R.N. History Arrived by private vehicle. Historian: patient. No primary care physician. Onset. (2 days ago). Treatment [employer]: (Pt applied a generic OTC irritation cream, can't remember the name of it. made it burn, didn't seem to help.). PAST MEDICAL HX: UTI. Immunizations: up-to-date. SOCIAL HX: Light tobacco smoker. Occasional alcohol use. History of heavy drug use: marijuana. No infectious disease exposure. SELF HARM ASSESSMENT: A self harm assessment was performed. The patient answered "no" to the question "Do you have thoughts of harming or killing yourself?" and "Have you recently had thoughts about harming or killing others?". FALL RISK ASSESSMENT: Fall risk assessment completed. No fall risk identified. NUTRITIONAL RISK ASSESSMENT: The nutritional risk assessment revealed no deficiencies. FUNCTIONAL ASSESSMENT: Functional assessment: no impairments noted. LEARNING NEEDS ASSESSMENT: The learning needs assessment revealed no barriers. ABUSE ASSESSMENT: Abuse assessment: The patient was asked "Do you feel safe in your home?". SKIN INTEGRITY ASSESSMENT: Skin integrity risk assessment completed. No skin integrity risk identified. --11:53 Francisco J Johnson R.N. PROBLEMS: Bronchitis. URI. Arthritis. Crush Injury. Exposure To STD. Substance Abuse. Seizure. Abscess. --11:51 Francisco J Johnson R.N. ADDITIONAL SURGERIES: R Wrist Repair. Skin grafting. --11:51 Francisco J Johnson R.N. Interventions ID band on patient. To treatment room. --11:53 Francisco J Johnson R.N. PHYSICAL ASSESSMENT Ambulatory to room. GENERAL / NEURO / PSYCH: Alert. Oriented X 4. Appears in no acute distress. HEENT: Mucous membranes are pink. RESPIRATORY: Respirations not labored. CVS: Capillary refill less than 2 seconds. GI / : Abdomen soft and nontender. Normal genitalia. ( Round, well-approximated lesions noted on right side of pubic region, between hip and penis. Roughly six-seven in number, pink, flat, smooth, and about the size of an eraser on the back of a pencil.). SKIN: Skin is warm and dry. --11:59 Francisco J Johnson R.N. NURSING PROGRESS NOTES The plan of care for this patient has been created. Head of bed elevated. Reassurance given. Two patient identifiers checked. Call light placed in reach. Side rails up x 1. Bed placed in lowest position. Brakes of bed on. Patient ready for evaluation- chart flagged and ED physician notified. --11:59 Francisco J Johnson R.N. DISPOSITION / DISCHARGE 12:29 10/18/16. The goals identified in the patient's plan of care were met. No learning barriers present. Discharge instructions provided and reviewed with the patient. Reviewed warnings. Reviewed medication(s). Treatments reviewed. Patient verbalized understanding. Written instructions provided in Rwandan. The patient was discharged by the physician. He was discharged home and accompanied by family. He left the Emergency Department ambulatory and via private vehicle. Family member driving. FALL RISK ASSESSMENT: Fall risk assessment completed. No fall risk identified. --12:29 James Ferguson R.N. 12:28 10/18/16. BP: 123/72. HR: 80. RR: 15. O2 saturation: 99% on room air. Temp: 98.2 F (oral). Pain level now: 04/11. --12:29 James Ferguson R.N. 12:29 10/18/16. Departure time: 12:Oct 18 2016. --12:29 James Ferguson R.N. Locked/Released at 10/18/2016 12:34 by James Ferguson R.N.
--- NOTE | 2016-10-18 13:38 | ED MED RECONCILIATION SUMMARY ---
Patient: GABINO BRIDGES Medication Reconciliation Report [facility] VisitID: [id number] [address] [place] [address] 45y, M Registration Date/Time: 10/18/2016 Weight: 70.3 kg Height/Length: 70 in. BMI: 22.2 ALLERGIES: None The patient's Home Medications are listed below: NONE. The source(s) of the original Home Medication information: Not obtained. The following Medications were given to the patient in the Emergency Department: None. The following Medications were prescribed to the patient: Nystatin Topical Cream: apply to affected areas three times daily as needed for rash until symptoms resolve. Dispense thirty (30) grams. No refills. -- Chano Mark Dr.
--- NOTE | 2016-10-18 13:38 | ED MED RECONCILIATION SUMMARY ---
Patient: GABINO BRIDGES Medication Reconciliation Report [facility] VisitID: [id number] [address] [place] [address] 45y, M Registration Date/Time: 10/18/2016 Weight: 70.3 kg Height/Length: 70 in. BMI: 22.2 ALLERGIES: None The patient's Home Medications are listed below: NONE. The source(s) of the original Home Medication information: Not obtained. The following Medications were given to the patient in the Emergency Department: None. The following Medications were prescribed to the patient: Nystatin Topical Cream: apply to affected areas three times daily as needed for rash until symptoms resolve. Dispense thirty (30) grams. No refills. -- Chano Mark Dr.
--- NOTE | 2016-10-18 13:38 | ED DISCHARGE INSTRUCTIONS ---
Patient: GABINO BRIDGES General Instructions [facility] VisitID: [id number] [place] [address] 45y, M Registration Date/Time: 10/18/2016 Tinea cruris INSTRUCTIONS Your Current Medications: CONTINUE TAKING THE FOLLOWING MEDICATIONS: None*. Prescription Medications: Nystatin Topical Cream: apply to affected areas three times daily as needed for rash until symptoms resolve. Dispense thirty (30) grams. No refills. Follow-up: Follow up with your doctor in about one week. Call for an appointment. Screening today revealed the patient's blood pressure to be in the pre-hypertensive range. The patient should follow up with a primary care provider for blood pressure management. ADDITIONAL INFORMATION Tinea Cruris(General) Tinea crurisis a red, itchy rash caused by a fungal infection. It occurs in skin folds where it is warm and moist. This is often the groin area (jock itch) or under the breasts. It often starts as a small patch that grows larger. This infection is treated with skin creams or oral medication. Home Care: If you were prescribed a cream, it should be applied exactly as directed. Some antifungal creams are available without a prescription (Lotrimin, Tinactin). It may take a week before the fungus starts to go away and it can take about2 to3 weeks to completely clear. To prevent recurrence, it is important to continue the medicine until the rash is all gone. Wash the area at least once a day with soap and water. Pat dry and apply medicine. If the rash is in the groin, change underwear daily. If the rash is under your breast, wear a bra to prevent dzry-bj-yjxb contact between the breast and the skin of the chest. Once the rash is gone, keep the area clean and dry to prevent reinfection. If recurrence is a problem, use a medicated antifungal powder daily (such as Zeasorb-AF, available [id number]). Follow Up With Your Doctor As Advised By Our Staff If The Rash Is Not Starting To Improve After10 Days Of Treatment Or If The Rash Continues To Spread. Get Prompt Medical Attention If Any Of The Following Occur: Increasing pain in the area of the rash Redness that spreads around the rash Fluid draining from the rash Fever of 100.4F (38C) or higher, or as directed by your healthcare provider Nystatin, Triamcinolone Acetonide Topical ointment What is this medicine? NYSTATIN; TRIAMCINOLONE (camacho STAT in; trye am SIN oh lone) is a combination of an antifungal medicine and a steroid. It is used to treat certain kinds of fungal or yeast infections of the skin. How should I use this medicine? This medicine is for external use only. Do not take by mouth. Follow the directions on the prescription label. Wash your hands before and after use. If treating hand or nail infections, wash hands before use only. Apply a thin layer of this medicine to the affected area and rub in gently. Do not use on healthy skin or over large areas of skin. Do not get this medicine in your eyes. If you do, rinse out with plenty of cool tap water. When applying to the groin area, apply a limited amount and do not use for longer than 2 weeks unless directed to by your doctor or health neonatal intensive care nurse. Do not cover or wrap the treated area with an airtight bandage (such as a plastic bandage). Use the full course of treatment prescribed, even if you think the infection is getting better. Use at regular intervals. Do not use your medicine more often than directed. Do not use this medicine for any condition other than the one for which it was prescribed. Talk to your injection molding supervisor regarding the use of this medicine in children. While this drug may be prescribed for selected conditions, precautions do apply. Children being treated in the diaper area should not wear tight-fitting diapers or plastic pants. Elderly patients are more likely to have damaged skin through aging, and this may increase side effects. This medicine should only be used for brief periods and infrequently in older patients. What side effects may I notice from receiving this medicine? Side effects that you should report to your doctor or health neonatal intensive care nurse as soon as possible: burning or itching of the skin dark red spots on the skin loss of feeling on skin painful, red, pus-filled blisters in hair follicles skin infection thinning of the skin or sunburn: more likely if applied to the face Side effects that usually do not require medical attention (report to your doctor or health neonatal intensive care nurse if they continue or are bothersome): dry or peeling skin skin irritation What may interact with this medicine? Interactions are not expected. Do not use any other skin products on the affected area without telling your doctor or health neonatal intensive care nurse. What if I miss a dose? If you miss a dose, use it as soon as you can. If it is almost time for your next dose, use only that dose. Do not use double or extra doses. Where should I keep my medicine? Keep out of the reach of children. Store at room temperature between 15 and 30 degrees C (59 and 86 degrees F). Do not freeze. Throw away any unused medicine after the expiration date. What should I tell my health care provider before I take this medicine? They need to know if you have any of these conditions: large areas of burned or damaged skin skin wasting or thinning peripheral vascular disease or poor circulation an unusual or allergic reaction to nystatin, triamcinolone, other corticosteroids, other medicines, foods, dyes, or preservatives or trying to get breast-feeding What should I watch for while using this medicine? Tell your doctor or health neonatal intensive care nurse if your symptoms do not start to get better within 1 week when treating the groin area or within 2 weeks when treating the feet. . Tell your doctor or health neonatal intensive care nurse if you develop sores or blisters that do not heal properly. If your skin infection returns after stopping this medicine, contact your doctor or health neonatal intensive care nurse. If you are using this medicine to treat an infection in the groin area, do not wear underwear that is tight-fitting or made from synthetic fibers such as sukumar or nylon. Instead, wear loose-fitting, cotton underwear. Also dry the area completely after bathing. You have been given the following additional information: Tinea Cruris, General Nystatin, Triamcinolone Acetonide Topical ointment (Electronically signed by Chano Mark Dr. 10/18/2016 13:38)
--- NOTE | 2016-10-18 13:38 | ED MAR SUMMARY ---
..... Medication Administration Record [facility] [address] [place] [place], [place] [id number] Patient: GABION BRIDGES Candace Visit ID: [id number] 45y, M Weight: 70.3 kg Height/Length: 70 in BMI: 22.2 ALLERGIES: None
--- NOTE | 2016-10-18 13:38 | ED MAR SUMMARY ---
..... Medication Administration Record [facility] [address] [place], [place] [id number] Patient: GABINO BRIDGES Candace Visit ID: [id number] 45y, M Weight: 70.3 kg Height/Length: 70 in BMI: 22.2 ALLERGIES: None
--- NOTE | 2016-10-18 13:38 | ED DISCHARGE INSTRUCTIONS ---
Patient: GABINO BRIDGES General Instructions [facility] VisitID: [id number] [place] [address] 45y, M Registration Date/Time: 10/18/2016 Tinea cruris INSTRUCTIONS Your Current Medications: CONTINUE TAKING THE FOLLOWING MEDICATIONS: None*. Prescription Medications: Nystatin Topical Cream: apply to affected areas three times daily as needed for rash until symptoms resolve. Dispense thirty (30) grams. No refills. Follow-up: Follow up with your doctor in about one week. Call for an appointment. Screening today revealed the patient's blood pressure to be in the pre-hypertensive range. The patient should follow up with a primary care provider for blood pressure management. ADDITIONAL INFORMATION Tinea Cruris(General) Tinea crurisis a red, itchy rash caused by a fungal infection. It occurs in skin folds where it is warm and moist. This is often the groin area (jock itch) or under the breasts. It often starts as a small patch that grows larger. This infection is treated with skin creams or oral medication. Home Care: If you were prescribed a cream, it should be applied exactly as directed. Some antifungal creams are available without a prescription (Lotrimin, Tinactin). It may take a week before the fungus starts to go away and it can take about2 to3 weeks to completely clear. To prevent recurrence, it is important to continue the medicine until the rash is all gone. Wash the area at least once a day with soap and water. Pat dry and apply medicine. If the rash is in the groin, change underwear daily. If the rash is under your breast, wear a bra to prevent enpy-cj-soez contact between the breast and the skin of the chest. Once the rash is gone, keep the area clean and dry to prevent reinfection. If recurrence is a problem, use a medicated antifungal powder daily (such as Zeasorb-AF, available [id number]). Follow Up With Your Doctor As Advised By Our Staff If The Rash Is Not Starting To Improve After10 Days Of Treatment Or If The Rash Continues To Spread. Get Prompt Medical Attention If Any Of The Following Occur: Increasing pain in the area of the rash Redness that spreads around the rash Fluid draining from the rash Fever of 100.4F (38C) or higher, or as directed by your healthcare provider Nystatin, Triamcinolone Acetonide Topical ointment What is this medicine? NYSTATIN; TRIAMCINOLONE (camacho STAT in; trye am SIN [place]) is a combination of an antifungal medicine and a steroid. It is used to treat certain kinds of fungal or yeast infections of the skin. How should I use this medicine? This medicine is for external use only. Do not take by mouth. Follow the directions on the prescription label. Wash your hands before and after use. If treating hand or nail infections, wash hands before use only. Apply a thin layer of this medicine to the affected area and rub in gently. Do not use on healthy skin or over large areas of skin. Do not get this medicine in your eyes. If you do, rinse out with plenty of cool tap water. When applying to the groin area, apply a limited amount and do not use for longer than 2 weeks unless directed to by your doctor or health manager critical care unit. Do not cover or wrap the treated area with an airtight bandage (such as a plastic bandage). Use the full course of treatment prescribed, even if you think the infection is getting better. Use at regular intervals. Do not use your medicine more often than directed. Do not use this medicine for any condition other than the one for which it was prescribed. Talk to your drawer fitter regarding the use of this medicine in children. While this drug may be prescribed for selected conditions, precautions do apply. Children being treated in the diaper area should not wear tight-fitting diapers or plastic pants. Elderly patients are more likely to have damaged skin through aging, and this may increase side effects. This medicine should only be used for brief periods and infrequently in older patients. What side effects may I notice from receiving this medicine? Side effects that you should report to your doctor or health manager critical care unit as soon as possible: burning or itching of the skin dark red spots on the skin loss of feeling on skin painful, red, pus-filled blisters in hair follicles skin infection thinning of the skin or sunburn: more likely if applied to the face Side effects that usually do not require medical attention (report to your doctor or health manager critical care unit if they continue or are bothersome): dry or peeling skin skin irritation What may interact with this medicine? Interactions are not expected. Do not use any other skin products on the affected area without telling your doctor or health manager critical care unit. What if I miss a dose? If you miss a dose, use it as soon as you can. If it is almost time for your next dose, use only that dose. Do not use double or extra doses. Where should I keep my medicine? Keep out of the reach of children. Store at room temperature between 15 and 30 degrees C (59 and 86 degrees F). Do not freeze. Throw away any unused medicine after the expiration date. What should I tell my health care provider before I take this medicine? They need to know if you have any of these conditions: large areas of burned or damaged skin skin wasting or thinning peripheral vascular disease or poor circulation an unusual or allergic reaction to nystatin, triamcinolone, other corticosteroids, other medicines, foods, dyes, or preservatives or trying to get breast-feeding What should I watch for while using this medicine? Tell your doctor or health manager critical care unit if your symptoms do not start to get better within 1 week when treating the groin area or within 2 weeks when treating the feet. . Tell your doctor or health manager critical care unit if you develop sores or blisters that do not heal properly. If your skin infection returns after stopping this medicine, contact your doctor or health manager critical care unit. If you are using this medicine to treat an infection in the groin area, do not wear underwear that is tight-fitting or made from synthetic fibers such as sukumar or nylon. Instead, wear loose-fitting, cotton underwear. Also dry the area completely after bathing. You have been given the following additional information: Tinea Cruris, General Nystatin, Triamcinolone Acetonide Topical ointment (Electronically signed by Chano Mark Dr. 10/18/2016 13:38)
== END 2016-10-18 12:29 | disposition home or self-care (01) ==
LOC: ED SRH 11:37
DX: B35.6 Tinea cruris (principal); F17.210 Nicotine dependence, cigarettes, uncomplicated